=== PATIENT | female | born 1940 | race Caucasian/White ===

== ENCOUNTER → 2017-02-15 | Outpatient (CLI) | payer MEDICARE, MEDICAID ==
[~2017-02-15] MED LIST: 00186-0370-20 IH; ACETAMINOPHEN W1 TA6 PO; ASPI325T6 PO; ASPIRIN 81M81 MG/TA2 PO; ASPIRIN E.C. 8181 MG PO; BEE-ZEE1 TAB PO; CEPHALEXIN500 M1 PO; CLEOCIN HCL300 MG PO; CLOPIDOGREL PO; COLACE 100100 MG/CAP PO; CYMBALTA 20MG20 MG PO; CYMBALTA 30MG30 MG PO; DILAUDID 2MG TAB2 MG PO; DILAUDID 4MG TAB4 MG PO; FERROUS SU325 MG/TAB PO; FLEXERIL5 MG PO; HYDROMORPHONE HC2 MG PO; IBUPROFEN800 MG PO; IPRATROPIUM BROM3 M1 IH; K-TAB10 PO; LEVAQUIN 2250 MG/TAB PO; LEVAQUIN 250MG250 MG PO; LEVAQUIN 5500 MG/TAB PO; LEVOTHYROXINE PO; LIDODERM 5% PATC1 EA TP; LIPITOR 10MG10 MG PO; LIPITOR 40MG TA40 MG PO; LISINOPRIL10 MG PO; LOPRESSOR 225 MG/TAB PO; MEGACE ES625 MG/51 PO; MICRO-K 10 EXT10 MEQ PO; MOBIC15 MG PO; MOTRIN 800800 MG/TAB PO; NEURONTIN100 MG/CAP PO; NORCO 325 MG-101 TAB PO; NORCO 325 MG-51 TAB PO; NORCO 325 MG-7.1 TAB PO; PERCOCET 325 MG1 TAB PO; PLAVIX 75MG TAB75 MG PO; PLETAL50 MG PO; PRILOSEC 20MG20 MG PO; PRINIVIL10 MG PO; PROTONIX 40MG T40 MG PO; SYNTHROID0.05 MG/TA PO; SYNTHROID0.088 MG/T PO; SYNTHROID0.1 MG/TAB PO; TYLENOL #4 (1 UDTAB PO; TYLENOL 325MG325 MG PO; ULTRAM 50MG TAB50 MG PO; VALIUM 5MG T5 MG/TAB PO; VITAMIN C500 MG PO; XANAX .25M0.25 MG/TA PO; XANAX 0.5MG0.5 MG PO; XANAX 1MG1 MG PO; XARELTO15 MG PO; XARELTO20 MG PO; ZANTAC 7575 MG PO; ZESTRIL 10MG10 MG PO; ZESTRIL2.5 MG PO; ZOFRAN4 MG PO; ZOFRAN8 MG PO
[2017-02-15 15:15] LABS: BASO % 0.5 % (0.0-2.0); EOS # 0.1 (0.0-0.7); EOS % 0.6 % (0-4.0); GRAN # 4.4 (1.4-6.5); GRAN % 53.5 % (42.2-75.2); HEMATOCRIT 43.3 % (37.0-47.0); HEMOGLOBIN 13.7 g/dl (12.5-16.0); LYMPH # 3.2 (1.2-3.4); LYMPH % 38.3 % (20.0-51.0); MEAN CELL VOLUME 89 fl (80.0-100.0); MEAN CORPUSCULAR HEMOGLOBIN 28 pg (27.0-31.0); MEAN CORPUSCULAR HGB CONC 32 g/dl (33.0-37.0); MEAN PLATELET VOLUME 8.9 fl (7.4-10.4); MONO # 0.5 (0.1-0.6); MONO % 6.3 % (1.7-9.3); PLATELET COUNT 332 K/mm3 (130-400); RED BLOOD COUNT 4.87 M/mm3 (4.10-5.30); REDCELL DISTRIBUTION WIDTH-CV 16.2 % (11.5-14.5); WHITE BLOOD COUNT 8.2 K/mm3 (4.8-10.8)
[2017-02-15 15:55] LABS: PH 5 (5-8); SQUAMOUS EPITHELIAL 0-2 /hpf; URINE APPEARANCE Turbid; URINE BACTERIA Rare /hpf; URINE BILIRUBIN Negative (NEGATIVE); URINE BLOOD Negative (NEGATIVE); URINE COLOR Yellow; URINE GLUCOSE Negative (NEGATIVE); URINE KETONE Negative (NEGATIVE); URINE RBC 0-2 /hpf; URINE UROBILINOGEN Negative (NEGATIVE); URINE WBC 0-2 /hpf
== END ==
LOC: ZCOL.LAB 14:42
PROVIDERS: Internal Medicine
DX: I10 Essential (primary) hypertension (principal); R32 Unspecified urinary incontinence

== ENCOUNTER → 2017-02-26 | Outpatient (CLI) | payer MEDICARE, MEDICAID ==
[2017-02-26 16:22] LABS: BASO % 0.4 % (0.0-2.0); EOS % 0.5 % (0-4.0); GRAN % 59.6 % (42.2-75.2); HEMATOCRIT 39.7 % (37.0-47.0); HEMOGLOBIN 12.6 g/dl (12.5-16.0); LYMPH # 2.6 (1.2-3.4); LYMPH % 31.8 % (20.0-51.0); MEAN CELL VOLUME 90 fl (80.0-100.0); MEAN CORPUSCULAR HEMOGLOBIN 28 pg (27.0-31.0); MEAN CORPUSCULAR HGB CONC 32 g/dl (33.0-37.0); MEAN PLATELET VOLUME 9.1 fl (7.4-10.4); MONO # 0.6 (0.1-0.6); PLATELET COUNT 243 K/mm3 (130-400); RED BLOOD COUNT 4.43 M/mm3 (4.10-5.30); REDCELL DISTRIBUTION WIDTH-CV 16.9 % (11.5-14.5); WHITE BLOOD COUNT 8.3 K/mm3 (4.8-10.8)
[2017-02-26 16:50] LABS: ADJUSTED CALCIUM 9.4 mg/dL (8.4-10.2); BILIRUBIN,TOTAL 0.3 mg/dL (0.0-1.0); CALCIUM 9.4 mg/dL (8.4-10.2); CREATININE, serum 0.62 mg/dL (0.52-1.25); POTASSIUM 4.5 mmol/L (3.4-5.0); TOTAL PROTEIN 6.7 gm/dL (6.4-8.2)
== END ==
LOC: ZCOL.LAB 15:03
PROVIDERS: Internal Medicine
DX: I10 Essential (primary) hypertension (principal)

== ENCOUNTER 2017-02-27 20:39 | Emergency (ER) | payer MEDICARE, MEDICAID ==
[~2017-02-27] VITALS: Ht 152.4 cm; Wt 40.9 kg
[~2017-02-27 20:39] MED LIST changes: -ASPI325T6 PO; -ASPIRIN 81M81 MG/TA2 PO; -ASPIRIN E.C. 8181 MG PO; -BEE-ZEE1 TAB PO; -COLACE 100100 MG/CAP PO; -CYMBALTA 20MG20 MG PO; -CYMBALTA 30MG30 MG PO; -FERROUS SU325 MG/TAB PO; -IPRATROPIUM BROM3 M1 IH; -K-TAB10 PO; -LOPRESSOR 225 MG/TAB PO; -MEGACE ES625 MG/51 PO; -MICRO-K 10 EXT10 MEQ PO; -MOBIC15 MG PO; -NEURONTIN100 MG/CAP PO; -PRINIVIL10 MG PO; -PROTONIX 40MG T40 MG PO; -SYNTHROID0.1 MG/TAB PO; -ULTRAM 50MG TAB50 MG PO; -VITAMIN C500 MG PO; -XARELTO15 MG PO; -XARELTO20 MG PO; -ZESTRIL2.5 MG PO
[2017-02-27 20:51] VITALS: TEMP 97.9
[2017-02-27 20:57] LABS: BASO % 0.3 % (0.0-2.0); EOS % 0.4 % (0-4.0); GRAN # 6.6 (1.4-6.5); GRAN % 64.1 % (42.2-75.2); HEMATOCRIT 38.2 % (37.0-47.0); HEMOGLOBIN 12.3 g/dl (12.5-16.0); LYMPH # 2.8 (1.2-3.4); LYMPH % 27.7 % (20.0-51.0); MEAN CELL VOLUME 88 fl (80.0-100.0); MEAN CORPUSCULAR HEMOGLOBIN 28 pg (27.0-31.0); MEAN CORPUSCULAR HGB CONC 32 g/dl (33.0-37.0); MONO # 0.7 (0.1-0.6); MONO % 6.6 % (1.7-9.3); PLATELET COUNT 237 K/mm3 (130-400); RED BLOOD COUNT 4.33 M/mm3 (4.10-5.30); REDCELL DISTRIBUTION WIDTH-CV 16.8 % (11.5-14.5); WHITE BLOOD COUNT 10.3 K/mm3 (4.8-10.8)
[2017-02-27 21:08] LABS: ALBUMIN 4.3 gm/dL (3.5-5.0); BILIRUBIN,TOTAL 0.3 mg/dL (0.0-1.0); CALCIUM 9.2 mg/dL (8.4-10.2); CREATININE, serum 0.96 mg/dL (0.52-1.25); POTASSIUM 5.6 mmol/L (3.4-5.0); TOTAL PROTEIN 7.4 gm/dL (6.4-8.2)
[2017-02-27 21:36] LABS: PH 5 (5-8); SQUAMOUS EPITHELIAL 0-2 /hpf; URINE APPEARANCE Clear; URINE BACTERIA None Seen /hpf; URINE BILIRUBIN Negative (NEGATIVE); URINE BLOOD Negative (NEGATIVE); URINE COLOR Yellow; URINE GLUCOSE Negative (NEGATIVE); URINE KETONE Negative (NEGATIVE); URINE RBC 0-2 /hpf; URINE UROBILINOGEN Negative (NEGATIVE); URINE WBC 0-2 /hpf
[2017-02-27 22:21] VITALS: BP 141/95; PULSE 87
== END 2017-02-27 22:21 | disposition home or self-care (01) ==
LOC: COL.ER 20:39
PROVIDERS: Family Medicine
DX: G30.9 Alzheimer's disease, unspecified (principal); F02.80 Dementia in other diseases classified elsewhere, unspecified severity, without behavioral disturbance, psychotic disturbance, mood disturbance, and anxiety; S09.90XA Unspecified injury of head, initial encounter; R51 Headache; R41.82 Altered mental status, unspecified; K21.9 Gastro-esophageal reflux disease without esophagitis; I10 Essential (primary) hypertension; W19.XXXA Unspecified fall, initial encounter; Y92.129 Unspecified place in nursing home as the place of occurrence of the external cause

== ENCOUNTER 2017-03-16 23:35 | Emergency (ER) | payer MEDICARE, MEDICAID ==
[~2017-03-16] VITALS: Ht 165.1 cm; Wt 43.6 kg
[2017-03-16 23:36] VITALS: BP 153/88; TEMP 97.2
[2017-03-17 00:17] LABS: BASO % 0.3 % (0.0-2.0); EOS % 0.5 % (0-4.0); GRAN # 4.6 (1.4-6.5); GRAN % 62.6 % (42.2-75.2); LYMPH % 27.1 % (20.0-51.0); MEAN CELL VOLUME 88 fl (80.0-100.0); MEAN CORPUSCULAR HGB CONC 32 g/dl (33.0-37.0); MEAN PLATELET VOLUME 8.4 fl (7.4-10.4); MONO # 0.6 (0.1-0.6); MONO % 8.6 % (1.7-9.3); PLATELET COUNT 250 K/mm3 (130-400); RED BLOOD COUNT 3.76 M/mm3 (4.10-5.30); REDCELL DISTRIBUTION WIDTH-CV 16.4 % (11.5-14.5); WHITE BLOOD COUNT 7.4 K/mm3 (4.8-10.8)
[2017-03-17 00:19] LABS: HEMOGLOBIN 10.7 g/dl (12.5-16.0); MEAN CORPUSCULAR HEMOGLOBIN 28 pg (27.0-31.0)
[2017-03-17 00:29] LABS: ADJUSTED CALCIUM 9.2 mg/dL (8.4-10.2); ALANINE AMINOTRANSFERASE 40 U/L (9-52); ALBUMIN 3.6 gm/dL (3.5-5.0); ALKALINE PHOSPHATASE 112 U/L (50-136); ANION GAP 11 mmol/L (7-16); BILIRUBIN,TOTAL 0.3 mg/dL (0.0-1.0); BLOOD UREA NITROGEN 26 mg/dL (7-17); CALCIUM 8.9 mg/dL (8.4-10.2); CARBON DIOXIDE 23 mmol/L (22-30); CHLORIDE 107 mmol/L (98-107); CREATININE, serum 0.51 mg/dL (0.52-1.25); GLUCOSE 79 mg/dL (74-106); LIPASE 168 U/L (23-300); POTASSIUM 3.6 mmol/L (3.4-5.0); SODIUM 140 mmol/L (137-145); TOTAL PROTEIN 6.3 gm/dL (6.4-8.2)
[2017-03-17 00:31] LABS: C-REACTIVE PROTEIN < 0.5 mg/dL (0.0-0.9)
[2017-03-17 01:12] LABS: PH 5 (5-8); SQUAMOUS EPITHELIAL None Seen /hpf; URINE APPEARANCE Clear; URINE BACTERIA None Seen /hpf; URINE BILIRUBIN Negative (NEGATIVE); URINE BLOOD Negative (NEGATIVE); URINE COLOR Yellow; URINE GLUCOSE 1+ (NEGATIVE); URINE KETONE Negative (NEGATIVE); URINE UROBILINOGEN Negative (NEGATIVE); URINE WBC 0-2 /hpf
[2017-03-17] MEDS ORDERED: NEURONTIN100 MG/CAP PO (02:19)
[2017-03-17] MEDS ORDERED: MEGACE ES625 MG/51 PO (02:19)
[2017-03-17] MEDS ORDERED: MOBIC15 MG PO (02:21)
[2017-03-17] MEDS ORDERED: CYMBALTA 20MG20 MG PO (02:22)
[2017-03-17] MEDS ORDERED: ASPIRIN 81M81 MG/TA2 PO (02:23)
[2017-03-17] MEDS ORDERED: PROTONIX 40MG T40 MG PO (02:24)
[2017-03-17] MEDS ORDERED: VITAMIN C500 MG PO (02:24)
[2017-03-17] MEDS ORDERED: TYLENOL 325MG325 MG PO (02:25)
[2017-03-17 03:30] VITALS: PULSE 92
== END 2017-03-17 04:44 | disposition home or self-care (01) ==
LOC: COL.ER 23:35
PROVIDERS: Emergency Medicine
DX: M84.454A Pathological fracture, pelvis, initial encounter for fracture (principal); M84.48XA Pathological fracture, other site, initial encounter for fracture; K59.00 Constipation, unspecified; F17.200 Nicotine dependence, unspecified, uncomplicated; Z79.82 Long term (current) use of aspirin; Z86.73 Personal history of transient ischemic attack (TIA), and cerebral infarction without residual deficits; Z90.710 Acquired absence of both cervix and uterus
CPT/HCPCS: J2060; J7030; Q9967

== ENCOUNTER → 2017-03-23 | Outpatient (REF) ==
[~2017-03-23] MED LIST changes: +ASPI325T6 PO; +ASPIRIN 81M81 MG/TA2 PO; +ASPIRIN E.C. 8181 MG PO; +BEE-ZEE1 TAB PO; +COLACE 100100 MG/CAP PO; +CYMBALTA 20MG20 MG PO; +CYMBALTA 30MG30 MG PO; +FERROUS SU325 MG/TAB PO; +IPRATROPIUM BROM3 M1 IH; +K-TAB10 PO; +LOPRESSOR 225 MG/TAB PO; +MEGACE ES625 MG/51 PO; +MICRO-K 10 EXT10 MEQ PO; +MOBIC15 MG PO; +NEURONTIN100 MG/CAP PO; +PRINIVIL10 MG PO; +PROTONIX 40MG T40 MG PO; +SYNTHROID0.1 MG/TAB PO; +ULTRAM 50MG TAB50 MG PO; +VITAMIN C500 MG PO; +XARELTO15 MG PO; +XARELTO20 MG PO; +ZESTRIL2.5 MG PO
[2017-03-23 19:35] LABS: PH 5 (5-8); SQUAMOUS EPITHELIAL None Seen /hpf; URINE APPEARANCE Turbid; URINE BACTERIA Rare /hpf; URINE BILIRUBIN Negative (NEGATIVE); URINE BLOOD Negative (NEGATIVE); URINE COLOR Yellow; URINE GLUCOSE Negative (NEGATIVE); URINE KETONE Trace (NEGATIVE); URINE RBC None Seen /hpf; URINE UROBILINOGEN Negative (NEGATIVE); URINE WBC None Seen /hpf
== END ==
LOC: ZLAB.WCH 19:15 → ZCOL.LAB 19:15
PROVIDERS: Internal Medicine
DX: Z01.89 Encounter for other specified special examinations (principal)

== ENCOUNTER 2017-03-29 00:32 | Inpatient (IN) | payer MEDICARE, MEDICAID ==
[2017-03-29] VITALS (9 sets, daily range): BP systolic 112–150; BP diastolic 65–81; PULSE 105–122; TEMP 97–98.5
[~2017-03-29] VITALS: Ht 152.4 cm; Wt 41.8 kg
[~2017-03-29 00:32] MED LIST changes: -ASPI325T6 PO; -ASPIRIN E.C. 8181 MG PO; -BEE-ZEE1 TAB PO; -COLACE 100100 MG/CAP PO; -CYMBALTA 30MG30 MG PO; -FERROUS SU325 MG/TAB PO; -IPRATROPIUM BROM3 M1 IH; -K-TAB10 PO; -LOPRESSOR 225 MG/TAB PO; -MICRO-K 10 EXT10 MEQ PO; -PRINIVIL10 MG PO; -SYNTHROID0.1 MG/TAB PO; -ULTRAM 50MG TAB50 MG PO; -XARELTO15 MG PO; -XARELTO20 MG PO; -ZESTRIL2.5 MG PO
[2017-03-29] MEDS ORDERED: PRINIVIL10 MG PO (01:41)
[2017-03-29] MEDS ORDERED: COLACE 100100 MG/CAP PO (01:43)
[2017-03-29] MEDS ORDERED: CYMBALTA 30MG30 MG PO (01:44)
[2017-03-29] MEDS ORDERED: MICRO-K 10 EXT10 MEQ PO (01:44)
[2017-03-29] MEDS ORDERED: ULTRAM 50MG TAB50 MG PO (01:48)
[2017-03-29 02:23] LABS: BASO # 0.1 (0.0-0.2); BASO % 0.3 % (0.0-2.0); EOS % 0.2 % (0-4.0); GRAN # 12.5 (1.4-6.5); GRAN % 75.9 % (42.2-75.2); LYMPH # 2.6 (1.2-3.4); MEAN CELL VOLUME 90 fl (80.0-100.0); MEAN CORPUSCULAR HGB CONC 33 g/dl (33.0-37.0); MEAN PLATELET VOLUME 8.8 fl (7.4-10.4); MONO # 1.1 (0.1-0.6); MONO % 6.5 % (1.7-9.3); PLATELET COUNT 256 K/mm3 (130-400); RED BLOOD COUNT 3.52 M/mm3 (4.10-5.30); REDCELL DISTRIBUTION WIDTH-CV 16.6 % (11.5-14.5); WHITE BLOOD COUNT 16.5 K/mm3 (4.8-10.8)
[2017-03-29 02:25] LABS: HEMATOCRIT 31.8 % (37.0-47.0); HEMOGLOBIN 10.4 g/dl (12.5-16.0); MEAN CORPUSCULAR HEMOGLOBIN 30 pg (27.0-31.0)
[2017-03-29 02:28] LABS: INR 1.1 (0.8-3.0); PROTHROMBIN TIME 11.9 SECONDS (9.7-12.8)
[2017-03-29 02:33] LABS: ADJUSTED CALCIUM 8.9 mg/dL (8.4-10.2); ALBUMIN 3.9 gm/dL (3.5-5.0); BILIRUBIN,TOTAL 0.3 mg/dL (0.0-1.0); CALCIUM 8.8 mg/dL (8.4-10.2); CREATININE, serum 0.54 mg/dL (0.52-1.25); POTASSIUM 4.5 mmol/L (3.4-5.0); TOTAL PROTEIN 6.7 gm/dL (6.4-8.2)
[2017-03-29 04:48] LABS: PH 5 (5-8); SQUAMOUS EPITHELIAL None Seen /hpf; URINE APPEARANCE Clear; URINE BACTERIA None Seen /hpf; URINE BILIRUBIN Negative (NEGATIVE); URINE BLOOD Negative (NEGATIVE); URINE COLOR Yellow; URINE GLUCOSE Negative (NEGATIVE); URINE KETONE Negative (NEGATIVE); URINE UROBILINOGEN Negative (NEGATIVE); URINE WBC 0-2 /hpf
[2017-03-29] MEDS ORDERED: SYNTHROID0.1 MG/TAB PO (05:06)
[2017-03-30] VITALS (14 sets, daily range): BP systolic 99–159; BP diastolic 52–99; PULSE 98–120; TEMP 97–100.1
[2017-03-30 06:59] LABS: HEMOGLOBIN 6.4 g/dl (12.5-16.0)
[2017-03-31 01:15] VITALS: BP 133/55; PULSE 74; TEMP 97.9
[2017-03-31 05:17] VITALS: BP 141/61; PULSE 75; TEMP 97.8
[2017-03-31 06:44] LABS: HEMOGLOBIN 10.2 g/dl (12.5-16.0)
[2017-03-31 10:35] VITALS: BP 104/56; PULSE 84; TEMP 98
[2017-03-31 14:55] VITALS: BP 120/82; PULSE 97; TEMP 97.9
[2017-03-31 18:55] VITALS: BP 154/69; PULSE 92; TEMP 98.4
[2017-03-31 22:00] VITALS: BP 132/61; PULSE 70; TEMP 97.6
[2017-04-01 05:11] VITALS: BP 153/74; PULSE 67; TEMP 97.9
[2017-04-01 09:43] VITALS: BP 123/64; PULSE 81; TEMP 98
[2017-04-01] MEDS ORDERED: IPRATROPIUM BROM3 M1 IH ×2 (10:35→10:36)
[2017-04-01] MEDS ORDERED: LOPRESSOR 225 MG/TAB PO (10:36)
[2017-04-01] MEDS ORDERED: PROTONIX 40MG T40 MG PO (10:38)
[2017-04-01] MEDS ORDERED: K-TAB10 PO (10:38)
[2017-04-01] MEDS ORDERED: ASPI325T6 PO (10:40)
[2017-04-01] MEDS ORDERED: ULTRAM 50MG TAB50 MG PO (10:41)
[2017-04-01] MEDS ORDERED: ZESTRIL2.5 MG PO (10:41)
[2017-04-01] MEDS ORDERED: NORCO 325 MG-51 TAB PO (10:41)
[2017-04-01] MEDS ORDERED: FERROUS SU325 MG/TAB PO (10:43)
[2017-04-01 14:21] VITALS: BP 121/60; PULSE 90; TEMP 98
[2017-04-01 17:30] VITALS: BP 132/66; PULSE 88; TEMP 98.7
[2017-04-01 21:20] VITALS: BP 141/68; PULSE 95; TEMP 97.7
[2017-04-02 06:20] VITALS: BP 175/90; PULSE 83; TEMP 97.2
[2017-04-02 07:35] VITALS: BP 175/90; PULSE 83; TEMP 97.2
[2017-04-03] MEDS ORDERED: BEE-ZEE1 TAB PO (00:57)
[2017-04-03] MEDS ORDERED: NORCO 325 MG-51 TAB PO (02:07)
== END 2017-04-02 09:31 | DRG 480 ==
LOC: COL.ER 00:32 → SURG 01:49
PROVIDERS: Nurse Practitioner Family; Orthopaedic Surgery; Physician Assistant
PROC: 0QS606Z Reposition Right Upper Femur with Intramedullary Internal Fixation Device, Open Approach (ICD-10-PCS; principal; 2017-03-29 15:10)
DX: S72.21XA Displaced subtrochanteric fracture of right femur, initial encounter for closed fracture (principal); E43 Unspecified severe protein-calorie malnutrition; I50.32 Chronic diastolic (congestive) heart failure; Z68.1 Body mass index [BMI] 19.9 or less, adult; W18.30XA Fall on same level, unspecified, initial encounter; I11.0 Hypertensive heart disease with heart failure; J44.9 Chronic obstructive pulmonary disease, unspecified; I70.211 Atherosclerosis of native arteries of extremities with intermittent claudication, right leg; F03.90 Unspecified dementia, unspecified severity, without behavioral disturbance, psychotic disturbance, mood disturbance, and anxiety; F17.210 Nicotine dependence, cigarettes, uncomplicated; D50.0 Iron deficiency anemia secondary to blood loss (chronic)
CPT/HCPCS: 99232-AI; 99239; A9284; C1713; J0360; J0690; J1630; J1940; J2250; J2270; J2405; J2704; J3010; J7030; J7120; P9016

== ENCOUNTER 2017-04-03 00:40 | Emergency (ER) | payer MEDICARE, MEDICAID ==
[~2017-04-03] VITALS: Ht 170.2 cm; Wt 45.5 kg
[~2017-04-03 00:40] MED LIST changes: +ASPI325T6 PO; +COLACE 100100 MG/CAP PO; +CYMBALTA 30MG30 MG PO; +FERROUS SU325 MG/TAB PO; +IPRATROPIUM BROM3 M1 IH; +K-TAB10 PO; +LOPRESSOR 225 MG/TAB PO; +MICRO-K 10 EXT10 MEQ PO; +PRINIVIL10 MG PO; +SYNTHROID0.1 MG/TAB PO; +ULTRAM 50MG TAB50 MG PO; +ZESTRIL2.5 MG PO
[2017-04-03 00:42] VITALS: TEMP 98
[2017-04-03] MEDS ORDERED: BEE-ZEE1 TAB PO (00:57)
[2017-04-03 01:19] LABS: BASO % 0.3 % (0.0-2.0); EOS % 0.3 % (0-4.0); GRAN # 5.7 (1.4-6.5); GRAN % 73.3 % (42.2-75.2); LYMPH # 1.2 (1.2-3.4); LYMPH % 15.6 % (20.0-51.0); MEAN CELL VOLUME 87 fl (80.0-100.0); MEAN CORPUSCULAR HGB CONC 33 g/dl (33.0-37.0); MEAN PLATELET VOLUME 8.7 fl (7.4-10.4); MONO # 0.7 (0.1-0.6); MONO % 9.6 % (1.7-9.3); PLATELET COUNT 236 K/mm3 (130-400); RED BLOOD COUNT 3.47 M/mm3 (4.10-5.30); REDCELL DISTRIBUTION WIDTH-CV 16.2 % (11.5-14.5); WHITE BLOOD COUNT 7.7 K/mm3 (4.8-10.8)
[2017-04-03 01:23] LABS: HEMATOCRIT 30.1 % (37.0-47.0); MEAN CORPUSCULAR HEMOGLOBIN 29 pg (27.0-31.0)
[2017-04-03 01:31] LABS: CALCIUM 8.8 mg/dL (8.4-10.2); CREATININE, serum 0.51 mg/dL (0.52-1.25); POTASSIUM 3.5 mmol/L (3.4-5.0)
[2017-04-03] MEDS ORDERED: NORCO 325 MG-51 TAB PO (02:07)
[2017-04-03 03:49] VITALS: BP 169/88; PULSE 112
== END 2017-04-03 03:49 | disposition home or self-care (01) ==
LOC: COL.ER 00:40
PROVIDERS: Emergency Medicine
DX: Z04.3 Encounter for examination and observation following other accident (principal); W06.XXXA Fall from bed, initial encounter; Y92.122 Bedroom in nursing home as the place of occurrence of the external cause; F03.90 Unspecified dementia, unspecified severity, without behavioral disturbance, psychotic disturbance, mood disturbance, and anxiety; Z96.641 Presence of right artificial hip joint; I10 Essential (primary) hypertension; J44.9 Chronic obstructive pulmonary disease, unspecified; E78.5 Hyperlipidemia, unspecified; I48.91 Unspecified atrial fibrillation; R40.2412 Glasgow coma scale score 13-15, at arrival to emergency department

== ENCOUNTER → 2017-04-05 | Outpatient (REF) ==
[~2017-04-05] MED LIST changes: +ASPIRIN E.C. 8181 MG PO; +BEE-ZEE1 TAB PO; +XARELTO15 MG PO; +XARELTO20 MG PO
[2017-04-05 13:38] LABS: ADJUSTED CALCIUM 9.7 mg/dL (8.4-10.2); ALBUMIN 3.2 gm/dL (3.5-5.0); BILIRUBIN,TOTAL 1.3 mg/dL (0.0-1.0); CALCIUM 9.1 mg/dL (8.4-10.2); CREATININE, serum 0.52 mg/dL (0.52-1.25); MAGNESIUM 1.9 mg/dL (1.6-2.3); POTASSIUM 4.4 mmol/L (3.4-5.0); TOTAL PROTEIN 5.6 gm/dL (6.4-8.2)
== END ==
LOC: ZCOL.LAB 13:06
PROVIDERS: Internal Medicine
DX: E61.2 Magnesium deficiency (principal); I10 Essential (primary) hypertension

== ENCOUNTER 2017-04-09 14:47 | Inpatient (IN) | payer MEDICARE, MEDICAID ==
[2017-04-09] VITALS (276 sets, daily range): BP systolic 117; BP diastolic 81; PULSE 92–103; TEMP 97–98.7; O2SAT 79–100
[~2017-04-09] VITALS: Ht 170.2 cm; Wt 37.6 kg
[~2017-04-09 14:47] MED LIST changes: -ASPIRIN E.C. 8181 MG PO; -XARELTO15 MG PO; -XARELTO20 MG PO
[2017-04-09] MEDS ORDERED: LOPRESSOR 225 MG/TAB PO (15:45)
[2017-04-09] MEDS ORDERED: NORCO 325 MG-51 TAB PO (15:58)
[2017-04-09 16:29] LABS: CALCIUM 9.5 mg/dL (8.4-10.2); CREATININE, serum 0.66 mg/dL (0.52-1.25); POTASSIUM 4.5 mmol/L (3.4-5.0)
[2017-04-09 17:01] LABS: BASO % 0.4 % (0.0-2.0); EOS # 0.1 (0.0-0.7); EOS % 1.1 % (0-4.0); GRAN # 8.3 (1.4-6.5); GRAN % 72.7 % (42.2-75.2); LYMPH # 1.9 (1.2-3.4); LYMPH % 16.3 % (20.0-51.0); MEAN CELL VOLUME 92 fl (80.0-100.0); MEAN CORPUSCULAR HGB CONC 32 g/dl (33.0-37.0); MEAN PLATELET VOLUME 8.7 fl (7.4-10.4); MONO # 0.9 (0.1-0.6); MONO % 8.3 % (1.7-9.3); PLATELET COUNT 490 K/mm3 (130-400); RED BLOOD COUNT 3.93 M/mm3 (4.10-5.30); REDCELL DISTRIBUTION WIDTH-CV 17.6 % (11.5-14.5); WHITE BLOOD COUNT 11.4 K/mm3 (4.8-10.8)
[2017-04-09 17:02] LABS: HEMATOCRIT 36.2 % (37.0-47.0); HEMOGLOBIN 11.7 g/dl (12.5-16.0); MEAN CORPUSCULAR HEMOGLOBIN 30 pg (27.0-31.0)
[2017-04-10] VITALS (285 sets, daily range): BP systolic 117–133; BP diastolic 44–80; PULSE 64–110; TEMP 97.5–98.7; O2SAT 93–100
[2017-04-10 06:52] LABS: BASO % 0.4 % (0.0-2.0); EOS # 0.1 (0.0-0.7); EOS % 1.6 % (0-4.0); GRAN # 4.6 (1.4-6.5); GRAN % 61.6 % (42.2-75.2); LYMPH # 2.1 (1.2-3.4); MEAN CELL VOLUME 93 fl (80.0-100.0); MEAN CORPUSCULAR HGB CONC 32 g/dl (33.0-37.0); MEAN PLATELET VOLUME 8.2 fl (7.4-10.4); MONO # 0.5 (0.1-0.6); MONO % 7.2 % (1.7-9.3); RED BLOOD COUNT 3.37 M/mm3 (4.10-5.30); REDCELL DISTRIBUTION WIDTH-CV 17.3 % (11.5-14.5); WHITE BLOOD COUNT 7.5 K/mm3 (4.8-10.8)
[2017-04-10 06:53] LABS: HEMATOCRIT 31.2 % (37.0-47.0); MEAN CORPUSCULAR HEMOGLOBIN 30 pg (27.0-31.0); PLATELET COUNT 385 K/mm3 (130-400)
[2017-04-10 07:05] LABS: CALCIUM 9.2 mg/dL (8.4-10.2); CREATININE, serum 0.56 mg/dL (0.52-1.25); POTASSIUM 3.9 mmol/L (3.4-5.0)
[2017-04-11 03:39] VITALS: BP 145/71; PULSE 77; TEMP 97.8
[2017-04-11 08:01] VITALS: BP 132/74; PULSE 90; TEMP 98.1
[2017-04-11] MEDS ORDERED: XARELTO15 MG PO (10:26)
[2017-04-11] MEDS ORDERED: XARELTO20 MG PO (10:27)
[2017-04-11] MEDS ORDERED: ASPIRIN E.C. 8181 MG PO (10:28)
[2017-04-11 11:28] VITALS: BP 120/72; PULSE 106; TEMP 97.8
== END 2017-04-11 15:26 | DRG 299 ==
LOC: COL.ER 14:47 → ICU 17:17 → MEDICAL 04-10 14:11 → ICU 04-10 14:11 → MEDICAL 04-10 14:11
PROVIDERS: Emergency Medicine; Nurse Practitioner Family
DX: T81.718A Complication of other artery following a procedure, not elsewhere classified, initial encounter (principal); E43 Unspecified severe protein-calorie malnutrition; I47.1 Supraventricular tachycardia; Z68.1 Body mass index [BMI] 19.9 or less, adult; I26.99 Other pulmonary embolism without acute cor pulmonale; S72.21XD Displaced subtrochanteric fracture of right femur, subsequent encounter for closed fracture with routine healing; F03.90 Unspecified dementia, unspecified severity, without behavioral disturbance, psychotic disturbance, mood disturbance, and anxiety; F17.210 Nicotine dependence, cigarettes, uncomplicated; J44.9 Chronic obstructive pulmonary disease, unspecified; E03.9 Hypothyroidism, unspecified; I73.9 Peripheral vascular disease, unspecified; W19.XXXD Unspecified fall, subsequent encounter
CPT/HCPCS: 99223-AI; 99232-AI; 99239; J1650; J7030; Q9967

== ENCOUNTER 2017-05-06 15:16 | Emergency (ER) | payer MEDICARE, MEDICAID ==
[~2017-05-06] VITALS: Ht 165.1 cm; Wt 45.5 kg
[~2017-05-06 15:16] MED LIST changes: +ASPIRIN E.C. 8181 MG PO; +XARELTO15 MG PO; +XARELTO20 MG PO
[2017-05-06 15:23] VITALS: TEMP 97.6
[2017-05-06 16:49] VITALS: BP 138/84; PULSE 76
== END 2017-05-06 16:49 | disposition home or self-care (01) ==
LOC: COL.ER 15:16
DX: S70.01XA Contusion of right hip, initial encounter (principal); I10 Essential (primary) hypertension; I73.9 Peripheral vascular disease, unspecified; J44.9 Chronic obstructive pulmonary disease, unspecified; E03.9 Hypothyroidism, unspecified; F03.90 Unspecified dementia, unspecified severity, without behavioral disturbance, psychotic disturbance, mood disturbance, and anxiety; E78.5 Hyperlipidemia, unspecified; F17.210 Nicotine dependence, cigarettes, uncomplicated; Z79.82 Long term (current) use of aspirin; Z86.73 Personal history of transient ischemic attack (TIA), and cerebral infarction without residual deficits; W01.0XXA Fall on same level from slipping, tripping and stumbling without subsequent striking against object, initial encounter; Y92.129 Unspecified place in nursing home as the place of occurrence of the external cause

== ENCOUNTER 2017-05-19 17:04 | Emergency (ER) | payer MEDICARE, MEDICAID ==
[~2017-05-19] VITALS: Ht 165.1 cm; Wt 45.5 kg
[2017-05-19 17:05] VITALS: BP 121/68; TEMP 98.3
[2017-05-19 18:40] VITALS: PULSE 62
== END 2017-05-19 20:25 | disposition home or self-care (01) ==
LOC: COL.ER 17:04
DX: S70.01XA Contusion of right hip, initial encounter (principal); F17.210 Nicotine dependence, cigarettes, uncomplicated; Z86.73 Personal history of transient ischemic attack (TIA), and cerebral infarction without residual deficits; Z98.890 Other specified postprocedural states; Z79.82 Long term (current) use of aspirin; Z91.81 History of falling; W08.XXXA Fall from other furniture, initial encounter; Y92.129 Unspecified place in nursing home as the place of occurrence of the external cause

== ENCOUNTER 2017-05-26 19:28 | Emergency (ER) | payer MEDICARE, MEDICAID ==
[~2017-05-26] VITALS: Ht 160 cm; Wt 41.4 kg
[2017-05-26 19:28] VITALS: BP 142/69; PULSE 62; TEMP 98
[2017-05-26] MEDS ORDERED: ZESTRIL 20MG TA20 MG PO (20:30)
[2017-05-26] MEDS ORDERED: ATIVAN 0.50.5 MG/TAB PO (20:32)
[2017-05-26] MEDS ORDERED: FENTANYL 12MCG TD (20:33)
== END 2017-05-26 21:18 | disposition home or self-care (01) ==
LOC: COL.ER 19:28
DX: S09.90XA Unspecified injury of head, initial encounter (principal); S00.93XA Contusion of unspecified part of head, initial encounter; S70.01XA Contusion of right hip, initial encounter; W01.10XA Fall on same level from slipping, tripping and stumbling with subsequent striking against unspecified object, initial encounter; Y92.129 Unspecified place in nursing home as the place of occurrence of the external cause; J44.9 Chronic obstructive pulmonary disease, unspecified; Z79.01 Long term (current) use of anticoagulants; Z86.711 Personal history of pulmonary embolism; I73.9 Peripheral vascular disease, unspecified; F17.210 Nicotine dependence, cigarettes, uncomplicated; S72.001D Fracture of unspecified part of neck of right femur, subsequent encounter for closed fracture with routine healing; X58.XXXD Exposure to other specified factors, subsequent encounter; R40.2412 Glasgow coma scale score 13-15, at arrival to emergency department

== ENCOUNTER 2017-07-05 20:28 | Emergency (ER) | payer MEDICARE, MEDICAID ==
[~2017-07-05] VITALS: Ht 167.6 cm; Wt 45.0 kg
[~2017-07-05 20:28] MED LIST changes: +ATIVAN 0.50.5 MG/TAB PO; +FENTANYL 12MCG TD; +ZESTRIL 20MG TA20 MG PO
[2017-07-05 20:31] VITALS: TEMP 98
[2017-07-05 21:30] LABS: BASO % 0.3 % (0.0-2.0); EOS # 0.2 (0.0-0.7); EOS % 2.3 % (0-4.0); GRAN # 4.3 (1.4-6.5); GRAN % 60.4 % (42.2-75.2); LYMPH # 1.9 (1.2-3.4); LYMPH % 27.2 % (20.0-51.0); MEAN CELL VOLUME 92 fl (80.0-100.0); MEAN CORPUSCULAR HGB CONC 31 g/dl (33.0-37.0); MEAN PLATELET VOLUME 8.8 fl (7.4-10.4); MONO # 0.7 (0.1-0.6); MONO % 9.5 % (1.7-9.3); PLATELET COUNT 269 K/mm3 (130-400); RED BLOOD COUNT 4.01 M/mm3 (4.10-5.30); WHITE BLOOD COUNT 7.1 K/mm3 (4.8-10.8)
[2017-07-05 21:31] LABS: HEMATOCRIT 36.8 % (37.0-47.0); HEMOGLOBIN 11.3 g/dl (12.5-16.0); MEAN CORPUSCULAR HEMOGLOBIN 28 pg (27.0-31.0)
[2017-07-05 21:35] LABS: INR 1.6 (0.8-3.0); PROTHROMBIN TIME 17.7 SECONDS (9.7-12.8)
[2017-07-05 21:38] LABS: PARTIAL THROMBOPLASTIN TIME 38.3 SECONDS (26.0-37.0)
[2017-07-05 21:42] LABS: ADJUSTED CALCIUM 9.9 mg/dL (8.4-10.2); ALANINE AMINOTRANSFERASE 24 U/L (9-52); ALBUMIN 3.5 gm/dL (3.5-5.0); ALKALINE PHOSPHATASE 183 U/L (50-136); ANION GAP 10 mmol/L (7-16); BILIRUBIN,TOTAL 0.4 mg/dL (0.0-1.0); BLOOD UREA NITROGEN 26 mg/dL (7-17); CALCIUM 9.5 mg/dL (8.4-10.2); CARBON DIOXIDE 24 mmol/L (22-30); CHLORIDE 105 mmol/L (98-107); CREATININE, serum 0.51 mg/dL (0.52-1.25); GLUCOSE 104 mg/dL (74-106); POTASSIUM 3.9 mmol/L (3.4-5.0); SODIUM 139 mmol/L (137-145); TOTAL PROTEIN 6.4 gm/dL (6.4-8.2)
[2017-07-05 21:53] LABS: TROPONIN-I < 0.012 ng/mL (0.000-0.034)
[2017-07-06 00:58] VITALS: BP 130/79; PULSE 77
== END 2017-07-05 23:58 | disposition home or self-care (01) ==
LOC: COL.ER 20:28
PROVIDERS: Emergency Medicine
DX: S01.01XA Laceration without foreign body of scalp, initial encounter (principal); F03.90 Unspecified dementia, unspecified severity, without behavioral disturbance, psychotic disturbance, mood disturbance, and anxiety; Z79.82 Long term (current) use of aspirin; W18.39XA Other fall on same level, initial encounter; Y92.129 Unspecified place in nursing home as the place of occurrence of the external cause

== ENCOUNTER → 2017-09-12 | Outpatient (CLI) | payer MEDICARE, MEDICAID ==
[2017-09-12 11:20] LABS: COLLECTION METHOD RANDOM VOIDED
[2017-09-12 11:29] LABS: PH 5 (5-8); SQUAMOUS EPITHELIAL None Seen /hpf; URINE APPEARANCE Turbid; URINE BACTERIA Moderate /hpf; URINE BILIRUBIN Negative (NEGATIVE); URINE BLOOD 1+ (NEGATIVE); URINE COLOR Amber; URINE GLUCOSE Negative (NEGATIVE); URINE KETONE Negative (NEGATIVE); URINE LEUKOCYTE ESTERASE Trace (NEGATIVE); URINE NITRATE Positive (NEGATIVE); URINE PROTEIN(semi-quant) Negative (NEGATIVE); URINE UROBILINOGEN Negative (NEGATIVE)
== END ==
LOC: ZCOL.LAB 11:15
PROVIDERS: Internal Medicine
DX: G62.9 Polyneuropathy, unspecified (principal)

== ENCOUNTER → 2018-02-08 | Outpatient (REF) ==
[~2018-02-08] MED LIST changes: +ALBUTEROL0.83 MG/ML IH; +ATROVENT I0.2 MG/1 M IH; +BIOFREEZE 0.2%-1 GE1 TOP; +DESYREL 50MG50 MG PO; +DOXYCYCLINE 10100 MG PO; +DULCOLAX TAB5 MG PO; +EVOCLIN1% TOP; +IRON TABLETS325 MG PO; +K-DUR 10 MEQ T10 MEQ PO; +LEVAQUIN 750MG750 M1 PO; +MIRALAX PA17 GM/Dose PO; +MULTI VITAMINS1 TAB PO; +PREDNISONE20 MG PO; +REMERON 15M15 MG/TA1 PO; +RISPERDAL 0.5M0.5 MG PO; +TOPROL XL 25MG25 MG PO; +VITAMIN D31000 I1 PO
[2018-02-08 13:21] LABS: BASO % 0.4 % (0.0-2.0); EOS # 0.1 (0.0-0.7); EOS % 2.1 % (0-4.0); GRAN # 2.8 (1.4-6.5); GRAN % 57.1 % (42.2-75.2); HEMATOCRIT 34.6 % (37.0-47.0); LYMPH # 1.5 (1.2-3.4); LYMPH % 30.5 % (20.0-51.0); MEAN CELL VOLUME 89 fl (80.0-100.0); MEAN CORPUSCULAR HEMOGLOBIN 28 pg (27.0-31.0); MEAN CORPUSCULAR HGB CONC 32 g/dl (33.0-37.0); MEAN PLATELET VOLUME 9.1 fl (7.4-10.4); MONO # 0.5 (0.1-0.6); MONO % 9.7 % (1.7-9.3); PLATELET COUNT 245 K/mm3 (130-400); REDCELL DISTRIBUTION WIDTH-CV 13.6 % (11.5-14.5)
[2018-02-08 14:18] LABS: CALCIUM 9.2 mg/dL (8.4-10.2); CREATININE, serum 0.64 mg/dL (0.52-1.25); MAGNESIUM 1.7 mg/dL (1.6-2.3); POTASSIUM 4.7 mmol/L (3.4-5.0)
== END ==
LOC: ZCOL.LAB 13:09
PROVIDERS: Internal Medicine
DX: Z01.89 Encounter for other specified special examinations (principal)

== ENCOUNTER → 2018-03-18 | Outpatient (CLI) | payer MEDICARE, MEDICAID | LOC: COL.RAD 09:31 | DX: I70.203 Unspecified atherosclerosis of native arteries of extremities, bilateral legs (principal); I77.4 Celiac artery compression syndrome; I70.1 Atherosclerosis of renal artery; Z95.828 Presence of other vascular implants and grafts | CPT/HCPCS: Q9967 ==

== ENCOUNTER → 2018-06-27 | Outpatient (CLI) | payer MEDICARE, MEDICAID ==
[~2018-06-27] MED LIST changes: +INVANZ INJ1 G/VIAL IJ
[2018-06-27 11:51] LABS: BASO % 0.5 % (0.0-2.0); EOS # 0.3 (0.0-0.7); EOS % 4.8 % (0-4.0); GRAN # 3.2 (1.4-6.5); HEMATOCRIT 40.7 % (37.0-47.0); HEMOGLOBIN 12.8 g/dl (12.5-16.0); LYMPH # 1.8 (1.2-3.4); LYMPH % 30.4 % (20.0-51.0); MEAN CELL VOLUME 88 fl (80.0-100.0); MEAN CORPUSCULAR HEMOGLOBIN 28 pg (27.0-31.0); MEAN CORPUSCULAR HGB CONC 31 g/dl (33.0-37.0); MEAN PLATELET VOLUME 9.4 fl (7.4-10.4); MONO # 0.5 (0.1-0.6); PLATELET COUNT 285 K/mm3 (130-400); RED BLOOD COUNT 4.64 M/mm3 (4.10-5.30); REDCELL DISTRIBUTION WIDTH-CV 14.6 % (11.5-14.5)
[2018-06-27 12:01] LABS: ALBUMIN 3.4 gm/dL (3.5-5.0); BILIRUBIN,TOTAL 0.2 mg/dL (0.0-1.0); CALCIUM 9.2 mg/dL (8.4-10.2); CHOLESTEROL RISK RATIO 2.9; CREATININE, serum 0.58 mg/dL (0.52-1.25); POTASSIUM 4.8 mmol/L (3.4-5.0); TOTAL PROTEIN 6.2 gm/dL (6.4-8.2)
[2018-06-27 12:30] LABS: THYROID STIMULATING HORMONE 2.08 uIU/mL (0.465-4.680)
== END ==
LOC: ZCOL.LAB 11:01 → ZLAB.STJ 11:01
PROVIDERS: Internal Medicine
DX: I73.9 Peripheral vascular disease, unspecified (principal)

== ENCOUNTER → 2018-10-23 | Outpatient (REF) ==
[2018-10-23 16:49] LABS: BASO % 0.6 % (0.0-2.0); EOS # 0.1 (0.0-0.7); EOS % 1.1 % (0-4.0); GRAN # 3.7 (1.4-6.5); HEMOGLOBIN 11.4 g/dl (12.5-16.0); LYMPH # 2.2 (1.2-3.4); LYMPH % 33.6 % (20.0-51.0); MEAN CELL VOLUME 87 fl (80.0-100.0); MEAN CORPUSCULAR HEMOGLOBIN 28 pg (27.0-31.0); MEAN CORPUSCULAR HGB CONC 32 g/dl (33.0-37.0); MEAN PLATELET VOLUME 9.3 fl (7.4-10.4); MONO # 0.6 (0.1-0.6); MONO % 9.2 % (1.7-9.3); PLATELET COUNT 341 K/mm3 (130-400); RED BLOOD COUNT 4.13 M/mm3 (4.10-5.30); REDCELL DISTRIBUTION WIDTH-CV 12.9 % (11.5-14.5)
[2018-10-23 16:57] LABS: CALCIUM 9.2 mg/dL (8.4-10.2); CREATININE, serum 0.63 mg/dL (0.52-1.25); POTASSIUM 4.3 mmol/L (3.4-5.0)
== END ==
LOC: ZCOL.LAB 16:29
PROVIDERS: Internal Medicine
DX: Z01.89 Encounter for other specified special examinations (principal)